=== PATIENT | female | born 1940 | race African-American/Black ===

== ENCOUNTER 2017-05-31 18:42 | Inpatient (IN) | payer OTHER ==
[~2017-05-31] VITALS: Ht 167.6 cm; Wt 77.6 kg
[2017-05-31] MEDS ORDERED: SODIUM CHLORIDE 0.9% 1,000 ML IV ONE (20:01)
[2017-05-31 20:29] LABS: CLARITY URINE CLOUDY (CLEAR); COLOR URINE YELLOW (YELLOW); KETONES URINE TRACE (NEGATIVE); LEUKOCYTE ESTERASE URINE 2+ (NEGATIVE); NITRITE URINE NEGATIVE (NEGATIVE); OCCULT BLOOD URINE NEGATIVE (NEGATIVE); PH URINE 6.5 (4.5-8.0); PROTEIN URINE 3+ (NEGATIVE); SPECIFIC GRAVITY URINE 1.015 (1.005-1.030)
[2017-05-31 20:31] LABS: CHLORIDE 102 mEq/L (98-107); ETHANOL BLOOD < 10 mg/dL
[2017-05-31 20:41] LABS: *AMPHETAMINES SCREEN URINE NEGATIVE (NEGATIVE); *BARBITURATES SCREEN URINE NEGATIVE (NEGATIVE); *BENZODIAZEPINES SCREEN URINE NEGATIVE (NEGATIVE); *COCAINE SCREEN URINE NEGATIVE (NEGATIVE); CANNABINOID URINE SCREEN NEGATIVE (NEGATIVE); METHADONE URINE SCREEN NEGATIVE (NEGATIVE); OPIATES URINE SCREEN NEGATIVE (NEGATIVE); PHENCYCLIDINE URINE SCREEN NEGATIVE (NEGATIVE)
[2017-05-31 21:02] LABS: BASOPHILS % 0.5 % (0.0-2.0); EOSINOPHILS % 0.6 % (0.0-5.0); HEMOGLOBIN. 11.4 g/dL (12.0-16.0); LYMPHOCYTES % 11.1 % (20.0-50.0); MEAN CORPUSCULAR HEMOGLOBIN 24.5 pg (28.0-32.0); MEAN CORPUSCULAR VOLUME 75.2 fL (81.0-99.0); MONOCYTES % 3.6 % (2.0-8.0); NEUTROPHILS % 84.2 % (40.0-76.0); PLATELET 281 x1000/uL (130-400); RED BLOOD CELL COUNT 4.65 mill/uL (4.2-5.4); RED CELL DISTRIBUTION WIDTH 15.9 % (11.6-14.6)
[2017-05-31] MEDS ORDERED: CEFTRIAXONE 1 G PREMIX 50 ML IV ONE (21:15)
[2017-06-01] MEDS ORDERED: DOCUSATE SODIUM 100MG CAPSULE PO PRN (00:30)
[2017-06-01] MEDS ORDERED: ACETAMINOPHEN 325MG TABLET PO PRN (00:30)
[2017-06-01] MEDS ORDERED: MAGNESIUM/ALUMINUM HYDROXIDE/SIMETHICONE 30ML UDC PO PRN (00:30)
[2017-06-01] MEDS ORDERED: GUAIFENESIN 200MG/10ML SUGAR FREE UDC PO PRN (00:30)
[2017-06-01] MEDS ORDERED: ACETAMINOPHEN 650MG SUPP PR PRN (00:30)
[2017-06-01] MEDS ORDERED: NA PHOS,M-B/NA PHOS,DI-BA ENEMA 118ML PR PRN (00:30)
[2017-06-01] MEDS ORDERED: PIPERACILLIN/TAZ 3.375G PREMIX 50 ML IV SCH (00:30)
[2017-06-01] MEDS ORDERED: AMLODIPINE 10MG TABLET PO SCH (00:30)
[2017-06-01] MEDS ORDERED: DEXTROSE 50% WATER 50ML SYRINGE IV PRN (00:30)
[2017-06-01] MEDS ORDERED: ONDANSETRON HCL 4MG/2ML VIAL IV PRN (00:30)
[2017-06-01] MEDS ORDERED: HYDROCODONE/ACETAMINOPHEN 5/325MG TABLET PO PRN (00:30)
[2017-06-01] MEDS ORDERED: ACETAMINOPHEN 650MG/20.3ML UDC GT PRN (00:30)
[2017-06-01] MEDS ORDERED: DIPHENHYDRAMINE 50MG/ML VIAL IV PRN (00:30)
[2017-06-01] MEDS: CLONIDINE 0.1MG TABLET PO PRN ×2 (02:01→19:58)
[2017-06-01] MEDS ORDERED: HYDRALAZINE HCL 25MG TABLET PO NR (02:30)
[2017-06-01] MEDS ORDERED: PIPERACILLIN/TAZ 2.25G PREMIX 50 ML IV NR (02:30)
[2017-06-01] MEDS: SODIUM CHLORIDE 0.9% 1,000 ML IV SCH ×2 (02:36→15:35)
[2017-06-01] MEDS ORDERED: AMLODIPINE 10MG TABLET PO NR (03:00)
[2017-06-01] MEDS ORDERED: HYDRALAZINE HCL 25MG TABLET PO SCH ×2 (06:00→14:00)
[2017-06-01] MEDS ORDERED: POTASSIUM CHLORIDE 20MEQ TABLET SR PO SCH (06:45)
[2017-06-01 07:18] LABS: BASOPHILS % 0.4 % (0.0-2.0); EOSINOPHILS % 0.6 % (0.0-5.0); HEMATOCRIT. 31.7 % (36.0-48.0); HEMOGLOBIN. 10.1 g/dL (12.0-16.0); LYMPHOCYTES % 17.8 % (20.0-50.0); MEAN CORPUSCULAR HEMOGLOBIN 23.8 pg (28.0-32.0); MEAN CORPUSCULAR VOLUME 74.5 fL (81.0-99.0); MEAN PLATELET VOLUME 8.4 fl (7.4-10.4); MONOCYTES % 7.2 % (2.0-8.0); PLATELET 228 x1000/uL (130-400); RED BLOOD CELL COUNT 4.26 mill/uL (4.2-5.4); RED CELL DISTRIBUTION WIDTH 16.1 % (11.6-14.6)
[2017-06-01 07:22] LABS: CHLORIDE 107 mEq/L (98-107); HDL CHOLESTEROL 53 mg/dL (40-59); LDL CHOLESTEROL 100 mg/dL (5-100)
[2017-06-01] MEDS ORDERED: POTASSIUM CHLORIDE 20MEQ TABLET SR PO ONE (08:08)
[2017-06-01] MEDS: PIPERACILLIN/TAZ 2.25G PREMIX 50 ML IV SCH ×2 (10:17→19:30)
[2017-06-01] MEDS: ENOXAPARIN 30MG/0.3ML SYR SUBCUT SCH (15:00)
[2017-06-01 15:20] VITALS: BP 186/92
[2017-06-01 16:26] VITALS: BP 162/81
[2017-06-01] MEDS: BLOOD SUGAR DIAGNOSTIC STRIP TEST SCH ×2 (16:27→21:20)
[2017-06-01] MEDS: INSULIN LISPRO 100 UNITS/ML SUBCUT SCH ×2 (17:16→21:00)
[2017-06-01] MEDS: AMLODIPINE 10MG TABLET PO SCH (17:50)
[2017-06-01 20:00] VITALS: BP 174/85
[2017-06-01] MEDS: CEFTRIAXONE 1 G PREMIX 50 ML IV SCH (21:20)
[2017-06-01] MEDS: HYDRALAZINE HCL 25MG TABLET PO SCH (22:22)
[2017-06-02] VITALS: BP 136/72
[2017-06-02] MEDS: PIPERACILLIN/TAZ 2.25G PREMIX 50 ML IV SCH ×3 (02:05→17:40)
[2017-06-02 04:00] VITALS: BP 160/76
[2017-06-02] MEDS: HYDRALAZINE HCL 25MG TABLET PO SCH ×3 (06:16→21:41)
[2017-06-02] MEDS: SODIUM CHLORIDE 0.9% 1,000 ML IV SCH ×2 (06:16→17:46)
[2017-06-02] MEDS: BLOOD SUGAR DIAGNOSTIC STRIP TEST SCH ×4 (06:16→20:26)
[2017-06-02 08:00] VITALS: BP 146/83
[2017-06-02] MEDS: AMLODIPINE 10MG TABLET PO SCH (08:29)
[2017-06-02] MEDS: INSULIN LISPRO 100 UNITS/ML SUBCUT SCH ×3 (12:06→20:26)
[2017-06-02] MEDS: ENOXAPARIN 30MG/0.3ML SYR SUBCUT SCH (12:07)
[2017-06-02 12:20] VITALS: BP 140/78
[2017-06-02 13:20] LABS: MEAN CORPUSCULAR VOLUME 74.6 fL (81.0-99.0); PLATELET 259 x1000/uL (130-400); RED BLOOD CELL COUNT 4.16 mill/uL (4.2-5.4)
[2017-06-02 15:43] LABS: VITAMIN B12 SERUM 536 pg/mL (211-911)
[2017-06-02 16:09] VITALS: BP 130/71
[2017-06-02] MEDS ORDERED: POTASSIUM CHLORIDE 20MEQ TABLET SR PO NR ×2 (16:30→21:00)
[2017-06-02 20:00] VITALS: BP 163/99
[2017-06-02] MEDS: CEFTRIAXONE 1 G PREMIX 50 ML IV SCH (20:27)
[2017-06-02] MEDS: CLONIDINE 0.1MG TABLET PO PRN (21:31)
[2017-06-03] VITALS (7 sets, daily range): BP systolic 150–193; BP diastolic 76–109
[2017-06-03] MEDS: PIPERACILLIN/TAZ 2.25G PREMIX 50 ML IV SCH ×2 (02:16→09:30)
[2017-06-03] MEDS: CLONIDINE 0.1MG TABLET PO PRN ×2 (05:04→19:11)
[2017-06-03] MEDS: HYDRALAZINE HCL 25MG TABLET PO SCH (05:04)
[2017-06-03] MEDS: BLOOD SUGAR DIAGNOSTIC STRIP TEST SCH ×4 (06:44→21:00)
[2017-06-03] MEDS: INSULIN LISPRO 100 UNITS/ML SUBCUT SCH ×4 (06:45→21:00)
[2017-06-03] MEDS ORDERED: AMLODIPINE 10MG TABLET PO ONE (07:45)
[2017-06-03] MEDS ORDERED: AMLO10TA4 PO (07:48)
[2017-06-03] MEDS ORDERED: HYDR-4135 PO (07:48)
[2017-06-03] MEDS ORDERED: ATOR10TA PO (08:00)
[2017-06-03] MEDS ORDERED: ASPI-986 PO (08:01)
[2017-06-03] MEDS ORDERED: SODIUM CHLORIDE 0.9% 1,000 ML IV SCH (08:45)
[2017-06-03] MEDS ORDERED: POTASSIUM CHLORIDE 20MEQ TABLET SR PO SCH ×2 (09:00→14:00)
[2017-06-03] MEDS ORDERED: AMLODIPINE 10MG TABLET PO SCH (09:00)
[2017-06-03 09:47] LABS: BASOPHILS % 0.3 % (0.0-2.0); EOSINOPHILS % 2.6 % (0.0-5.0); HEMATOCRIT. 29.9 % (36.0-48.0); HEMOGLOBIN. 9.6 g/dL (12.0-16.0); LYMPHOCYTES % 31.7 % (20.0-50.0); MEAN PLATELET VOLUME 8.5 fl (7.4-10.4); MONOCYTES % 5.9 % (2.0-8.0); NEUTROPHILS % 59.5 % (40.0-76.0); PLATELET 242 x1000/uL (130-400); RED BLOOD CELL COUNT 3.99 mill/uL (4.2-5.4); RED CELL DISTRIBUTION WIDTH 16.1 % (11.6-14.6)
[2017-06-03 10:50] LABS: CHLORIDE 111 mEq/L (98-107)
[2017-06-03] MEDS ORDERED: ENOXAPARIN 30MG/0.3ML SYR SUBCUT SCH (13:00)
[2017-06-03] MEDS ORDERED: HYDRALAZINE HCL 100MG TABLET PO SCH (14:00)
[2017-06-03] MEDS ORDERED: HYDRALAZINE HCL 50MG TABLET PO SCH ×2 (14:00→21:00)
[2017-06-03] MEDS ORDERED: LEVO500T2 PO (16:59)
[2017-06-03] MEDS ORDERED: ATORVASTATIN CALCIUM 20MG TABLET PO SCH (21:00)
[2017-06-03] MEDS ORDERED: AMLODIPINE 10MG TABLET PO NR (21:15)
== END 2017-06-03 22:00 | disposition home or self-care (01) | DRG 682 ==
LOC: ER 18:42 → 8WST 06-01 00:16 → EDBEDREQ 06-01 00:20 → EDBEDREQDT 06-01 00:20 → EDBEDREQTM 06-01 00:20 → ENRESERV 06-01 12:28 → 8WST 06-01 15:09
PROVIDERS: ADMIT Family Medicine; ATTEND Family Medicine
PROC: 4A00X4Z Measurement of Central Nervous Electrical Activity, External Approach (ICD-10-PCS; principal; 2017-06-03)
DX: N17.9 Acute kidney failure, unspecified (principal); G93.40 Encephalopathy, unspecified; E11.22 Type 2 diabetes mellitus with diabetic chronic kidney disease; D64.9 Anemia, unspecified; E11.36 Type 2 diabetes mellitus with diabetic cataract; N39.0 Urinary tract infection, site not specified; R55 Syncope and collapse; E04.9 Nontoxic goiter, unspecified; E78.5 Hyperlipidemia, unspecified; E66.9 Obesity, unspecified; E87.6 Hypokalemia; R80.9 Proteinuria, unspecified; Z60.2 Problems related to living alone; N18.9 Chronic kidney disease, unspecified; I12.9 Hypertensive chronic kidney disease with stage 1 through stage 4 chronic kidney disease, or unspecified chronic kidney disease; Z82.49 Family history of ischemic heart disease and other diseases of the circulatory system; Z90.710 Acquired absence of both cervix and uterus; Z83.3 Family history of diabetes mellitus; Z90.89 Acquired absence of other organs; Z68.27 Body mass index [BMI] 27.0-27.9, adult
CPT/HCPCS: 36415; 70450; 70551; 71045; 76536; 76770; 80048; 80053; 80061; 80305; 81001; 82607; 82962; 83036; 84443; 85025; 85027; 85379; 96365; 96366; 96375; 99285; G0482; J0696; J1650; J1815; J2543; J7030